=== PATIENT | female | born 1995 ===

== ENCOUNTER 2020-06-30 03:30 | Observation (INO) ==
[2020-06-30 04:16] LABS: Basophils % 0.1 %; Eosinophils # 0.3 K/mcL (0.0-0.6); Eosinophils % 1.6 %; Hemoglobin 13.3 g/dL (11.5-15.4); Immature Granulocytes % 0.2 % (0-4); Lymphocytes # 2.6 K/mcL (0.6-4.6); Lymphocytes % 15.6 %; Mean Corpuscular HGB Conc 31.7 g/dL (31.6-35.5); Mean Corpuscular Hemoglobin 29.1 pg (28.0-33.3); Mean Corpuscular Volume 91.9 fL (83.0-100.0); Mean Platelet Volume 9.5 fL (9.4-12.4); Monocytes # 0.9 K/mcL (0.0-1.3); Monocytes % 5.2 %; Platelet Count 407 K/mcL (140-400); Red Blood Count 4.57 M/mcL (3.82-4.97); Red Cell Distribution Width 12.4 % (11.5-14.5); Segmented Neutrophils % 77.3 %; White Blood Count 16.8 K/mcL (4.3-11.1)
[2020-06-30 04:20] LABS: Bilirubin,Urine Negative (Negative); Blood,Urine Negative (Negative); Clarity,Urine Clear (Clear); Color,Urine Yellow (Yellow); Glucose,Urine (UA) Normal (Normal); Ketones,Urine Negative (Negative); Leukocyte Esterase,Urine Moderate (Negative); Mucus,Urine Few per lpf (None-Few); Nitrite,Urine Negative (Negative); Protein,Urine Trace mg/dL (Neg-Trace); Squamous Epithelial Cell,Urine Moderate per hpf (None-Few); Urobilinogen,Urine Normal (Normal); WBC,Urine 15-30 per hpf (0-3)
[2020-06-30] MEDS ORDERED: Isovue-370 500 ML BOTTLE IVP ONE (04:20)
[2020-06-30] MEDS ORDERED: Ondansetron 4 MG/2 ML VIAL IVP ONE (04:30)
[2020-06-30] MEDS ORDERED: Famotidine 20 MG/2 ML VIAL IVP ONE (04:31)
[2020-06-30 04:36] LABS: Alanine Aminotransferase 18 Units/L (7-52); Albumin 3.9 g/dL (3.5-5.7); Albumin/Globulin Ratio 1.3 (1.1-2.2); Alkaline Phosphatase 50 Units/L (34-104); Aspartate Amino Transferase 11 Units/L (13-39); BUN/Creatinine Ratio 13 (6-26); Bilirubin,Total 0.4 mg/dL (0.3-1.0); Blood Urea Nitrogen 10 mg/dL (6-20); Calcium 9.1 mg/dL (8.6-10.3); Carbon Dioxide 26 mEq/L (23-29); Chloride 104 mEq/L (98-107); Globulin 3.1 g/dL (2.4-3.5); Glucose 120 mg/dL (70-105); Osmolality,Calculated 282 (280-300); Potassium 3.8 mEq/L (3.5-5.1); Sodium 136 mEq/L (136-145); eGFR For African Americans > 60 (> 60); eGFR For Non-African Americans > 60 (> 60)
[2020-06-30] MEDS ORDERED: Tetracaine/Benzocaine/Butamben 1 SPRAY AEROSOL MM ONE (06:48)
[2020-06-30] MEDS ORDERED: Morphine Sulfate 2 MG/ML SYRINGE IVP ONE (06:48)
[2020-06-30] MEDS ORDERED: MethylPREDNISolone 40 MG/ML VIAL IVP ONE (06:53)
[2020-06-30] MEDS ORDERED: Ondansetron 4 MG/2 ML VIAL IVP PRN (07:15)
[2020-06-30] MEDS ORDERED: Naloxone 0.4 MG/ML INJ IVP PRN (07:15)
[2020-06-30] MEDS: MethylPREDNISolone 40 MG/ML VIAL IVP ONE ×2 (08:12→20:05)
[2020-06-30] MEDS: Loratadine 10 MG TABLET PO SCH (10:49)
[2020-06-30] MEDS: Cholecalciferol (D-3) 1,000 UNIT (25MCG) TABLET PO SCH (10:49)
[2020-06-30] MEDS: 0.9 % Sodium Chloride 1,000 ML IVC SCH (10:50)
[2020-06-30] MEDS ORDERED: Acetaminophen 325 MG TABLET PO PRN (12:59)
[2020-06-30] MEDS: Morphine Sulfate 2 MG/ML SYRINGE IVP PRN (18:32)
[2020-07-01] MEDS: 0.9 % Sodium Chloride 1,000 ML IVC SCH ×3 (01:12→14:08)
[2020-07-01] MEDS ORDERED: *HR* Enoxaparin 40 MG/0.4 ML SYRINGE SQ SCH (06:00)
[2020-07-01] MEDS: Cholecalciferol (D-3) 1,000 UNIT (25MCG) TABLET PO SCH (08:25)
[2020-07-01] MEDS: Loratadine 10 MG TABLET PO SCH (08:25)
[2020-07-01] MEDS ORDERED: methylPREDNISolone 125 MG/2 ML VIAL IVP SCH (09:00)
[2020-07-01 10:56] VITALS: BP 110/74
[2020-07-01] MEDS: Morphine Sulfate 2 MG/ML SYRINGE IVP PRN (11:12)
[2020-07-01 13:17] LABS: Basophils % 0.1 %; Eosinophils % 0.1 %; Hematocrit 42.3 % (35.3-44.9); Hemoglobin 13.1 g/dL (11.5-15.4); Immature Granulocytes % 0.5 % (0-4); Lymphocytes # 1.3 K/mcL (0.6-4.6); Lymphocytes % 14.9 %; Mean Corpuscular Hemoglobin 28.7 pg (28.0-33.3); Mean Corpuscular Volume 92.6 fL (83.0-100.0); Mean Platelet Volume 9.8 fL (9.4-12.4); Monocytes # 0.2 K/mcL (0.0-1.3); Monocytes % 1.9 %; Neutrophils # 7.1 K/mcL (1.6-8.9); Platelet Count 346 K/mcL (140-400); Red Blood Count 4.57 M/mcL (3.82-4.97); Red Cell Distribution Width 12.5 % (11.5-14.5); Segmented Neutrophils % 82.5 %; White Blood Count 8.5 K/mcL (4.3-11.1)
[2020-07-01 13:35] LABS: BUN/Creatinine Ratio 15 (6-26); Blood Urea Nitrogen 11 mg/dL (6-20); Calcium 9.2 mg/dL (8.6-10.3); Carbon Dioxide 23 mEq/L (23-29); Chloride 107 mEq/L (98-107); Glucose 119 mg/dL (70-105); Magnesium 1.9 mg/dL (1.6-2.6); Osmolality,Calculated 287 (280-300); Phosphorous 2.1 mg/dL (2.7-4.5); Potassium 3.9 mEq/L (3.5-5.1); Sodium 138 mEq/L (136-145); eGFR For African Americans > 60 (> 60); eGFR For Non-African Americans > 60 (> 60)
== END 2020-07-01 14:34 | disposition home or self-care (01) ==
LOC: EMEROOARM 03:30 → 3BNU 03:30 → SUATTDRO 07:39 → 3BNU 08:45
PROVIDERS: ADMIT Internal Medicine; ATTEND Student in an Organized Health Care Education/Training Program